=== PATIENT | female | born 1975 | race American Indian/Alaskan Native ===

== ENCOUNTER 2017-04-15 19:06 | Emergency (ER) | payer SELFPAY ==
[2017-04-15 20:05] LABS: Basophils % (Auto) 0.7 % (0.0-1.8); Eosinophils % (Auto) 1.3 % (0.0-4.3); Hematocrit 25.6 % (30.3-42.9); Hemoglobin 7.8 gm/dl (10.1-14.3); Mean Corpuscular HGB Conc 30 % (30-34); Platelet Count 396 K/mm3 (140-440); White Blood Count 8.3 K/mm3 (4.5-11.0)
[2017-04-15 20:08] LABS: Mean Corpuscular Hemoglobin 19 pg (28-32); Mean Corpuscular Volume 63 fl (79-97); Red Cell Distribution Width 23.5 % (13.2-15.2)
[2017-04-15 20:29] LABS: Anion Gap 18 mmol/L; BUN/Creatinine Ratio 17; Blood Urea Nitrogen 10 mg/dL (7-17); Calcium 8.5 mg/dL (8.4-10.2); Carbon Dioxide 26 mmol/L (22-30); Chloride 94.7 mmol/L (98-107); Glucose 337 mg/dL (65-100); Sodium 136 mmol/L (137-145)
[2017-04-15 20:34] LABS: Potassium 2.9 mmol/L (3.6-5.0)
[2017-04-15] MEDS ORDERED: K-DUR PO ONE (21:24)
--- NOTE | 2017-04-15 21:38 | Emergency Department Report ---
HPI - General Chief Complaint: Hyperglycemia Time Seen by Provider: 04/15/17 21:23 - HPI HPI: Room 19 The patient is a 41-year-old female presenting with a chief complaint of STD exposure. The patient states she had a sexual encounter with a partner in January and since then she has had vaginal irritation and occasional vaginal pain. The patient states she also has had yellow vaginal discharge. The patient states she was contacted by the partner and informed that he had an STD. The patient states she was not told which type of STD he was diagnosed with. Patient denies fever, dysuria or abdominal pain Location: Pelvis Duration: Intermittent since January Quality: Pain Severity: Moderate Modifying factors: [see above] Context: [see above] Mode of transportation: Unknown ED Past Medical Hx - Past Medical History Hx Hypertension: Yes Hx Diabetes: Yes - Surgical History Additional Surgical History: Csection - Family History Family history: no significant - Social History Smoking Status: Never Smoker Substance Use Type: Alcohol (occasional) - Medications Home Medications: Home Medications Medication Instructions Recorded Confirmed Last Taken Type Ferrous Sulfate [Feosol 325 MG tab] 325 mg PO TID #90 tablet 09/25/15 03/03/16 Unknown Rx Docusate Sodium [Colace] 100 mg PO BID PRN #60 capsule 04/15/17 Unknown Rx Ferrous Sulfate [Feosol 325 MG tab] 325 mg PO TID #90 tablet 04/15/17 Unknown Rx ED Review of Systems ROS: Stated complaint: PAIN/DISCHARGE Other details as noted in HPI Comment: All other systems reviewed and negative Constitutional: denies: chills, fever Eyes: denies: eye pain, eye discharge, vision change ENT: denies: ear pain, throat pain Respiratory: denies: cough, shortness of breath, wheezing Cardiovascular: denies: chest pain, palpitations Endocrine: no symptoms reported Gastrointestinal: denies: abdominal pain, nausea, diarrhea Genitourinary: discharge. denies: dysuria Musculoskeletal: denies: back pain, joint swelling, arthralgia Skin: denies: rash, lesions Neurological: denies: headache, weakness, paresthesias Psychiatric: denies: anxiety, depression Hematological/Lymphatic: denies: easy bleeding, easy bruising Physical Exam - Physical Exam Vital Signs: Vital Signs 04/15/17 19:25 Temperature 98.6 F Pulse Rate 116 H Respiratory 18 Rate Blood Pressure 165/100 O2 Sat by Pulse 99 Oximetry Physical Exam: GENERAL: The patient is well-developed well-nourished female lying on stretcher not appearing to be in acute distress. [] HEENT: Normocephalic. Atraumatic. Extraocular motions are intact. Patient has moist mucous membranes. NECK: Supple. Trachea midline CHEST/LUNGS: Clear to auscultation. There is no respiratory distress noted. HEART/CARDIOVASCULAR: Regular. There is no tachycardia. There is no gallop rub or murmur. ABDOMEN: Abdomen is soft, nontender. Patient has normal bowel sounds. There is no abdominal distention. SKIN: There is no rash. There is no edema. There is no diaphoresis. NEURO: The patient is awake, alert, and oriented. The patient is cooperative. The patient has normal speech MUSCULOSKELETAL: There is no evidence of acute injury. PELVIC: No visible discharge seen. No cervical lesions ED Course Vital Signs 04/15/17 19:25 Temperature 98.6 F Pulse Rate 116 H Respiratory 18 Rate Blood Pressure 165/100 O2 Sat by Pulse 99 Oximetry ED Medical Decision Making - Lab Data Result diagrams: 04/15/17 19:54 04/15/17 19:54 Laboratory Tests 04/15/17 04/15/17 04/15/17 19:47 19:54 19:54 WBC 8.3 RBC 4.10 Hgb 7.8 L Hct 25.6 L MCV 63 L MCH 19 L MCHC 30 RDW 23.5 H Plt Count 396 Lymph % (Auto) 23.4 Jess[place] % (Auto) 10.1 H Eos % (Auto) 1.3 Baso % (Auto) 0.7 Lymph # 1.9 Jessamine # 0.8 Eos # 0.1 Baso # 0.1 Seg Neutrophils % 64.5 Seg Neutrophils # 5.3 VBG pH Sodium 136 L Potassium 2.9 L* Chloride 94.7 L Carbon Dioxide 26 Anion Gap 18 BUN 10 Creatinine 0.6 L Estimated GFR > 60 BUN/Creatinine Ratio 17 Glucose 337 H POC Glucose 372 H Calcium 8.5 HCG, Qual Urine Color Urine Turbidity Urine pH Urine Protein Urine Glucose (UA) Urine Ketones Urine Blood Urine Nitrite Urine Bilirubin Urine Urobilinogen Ur Leukocyte Esterase Urine WBC (Auto) Urine RBC (Auto) U Epithel Cells (Auto) Urine Bacteria (Auto) 04/15/17 04/15/17 04/15/17 19:54 19:54 21:47 WBC RBC Hgb Hct MCV MCH MCHC RDW Plt Count Lymph % (Auto) Jessamine % (Auto) Eos % (Auto) Baso % (Auto) Lymph # Jessamine # Eos # Baso # Seg Neutrophils % Seg Neutrophils # VBG pH 7.464 H Sodium Potassium Chloride Carbon Dioxide Anion Gap BUN Creatinine Estimated GFR BUN/Creatinine Ratio Glucose POC Glucose 370 H Calcium HCG, Qual Negative Urine Color Urine Turbidity Urine pH Urine Protein Urine Glucose (UA) Urine Ketones Urine Blood Urine Nitrite Urine Bilirubin Urine Urobilinogen Ur Leukocyte Esterase Urine WBC (Auto) Urine RBC (Auto) U Epithel Cells (Auto) Urine Bacteria (Auto) 04/15/17 Unknown WBC RBC Hgb Hct MCV MCH MCHC RDW Plt Count Lymph % (Auto) Jessamine % (Auto) Eos % (Auto) Baso % (Auto) Lymph # Jessamine # Eos # Baso # Seg Neutrophils % Seg Neutrophils # VBG pH Sodium Potassium Chloride Carbon Dioxide Anion Gap BUN Creatinine Estimated GFR BUN/Creatinine Ratio Glucose POC Glucose Calcium HCG, Qual Urine Color Straw Urine Turbidity Clear Urine pH 6.0 Urine Protein <15 mg/dl Urine Glucose (UA) >=500 Urine Ketones Tr Urine Blood Neg Urine Nitrite Neg Urine Bilirubin Neg Urine Urobilinogen < 2.0 Ur Leukocyte Esterase Neg Urine WBC (Auto) < 1.0 Urine RBC (Auto) 3.0 U Epithel Cells (Auto) 2.0 Urine Bacteria (Auto) 1+ Wet prep-no clue cells, no Trichomonas, no yeast - Differential Diagnosis vaginitis, UTI, bacterial vaginosis, STD exposure Critical care attestation.: If time is entered above; I have spent that time in minutes in the direct care of this critically ill patient, excluding procedure time. ED Disposition Clinical Impression: Vaginal discharge, Hypokalemia, STD exposure, Anemia Disposition: DC-01 TO HOME OR SELFCARE Is pt being admited?: No Does the pt Need Aspirin: No Condition: Stable Instructions: Sexually Transmitted Diseases (ED), Safe Sex (ED) Additional Instructions: Return to the emergency department immediately should you develop worsening symptoms, fever, inability to tolerate food or liquid or any other concerns. Prescriptions: Docusate Sodium [Colace] 100 mg PO BID PRN #60 capsule PRN Reason: Constipation Ferrous Sulfate [Feosol 325 MG tab] 325 mg PO TID #90 tablet Referrals: PRIMARY CARE, [Primary Care Provider] - 3-5 Days [facility] [Outside] - [facility] (You should follow-up at the health department for further screening for sexually transmitted diseases) Time of Disposition: 23:28
[2017-04-15] MEDS ORDERED: NACL 0.9% 1000 ML 1,000 ML IV ONE (21:48)
[2017-04-15 21:54] LABS: Bacteria,Urine 1+ /HPF (Negative); Bilirubin,Urine NEG (Negative); Blood,Urine NEG (Negative); Ketones,Urine TR mg/dL (Negative); Leukocyte Esterase,Urine NEG (Negative); Nitrite,Urine NEG (Negative); Protein,Urine <15 mg/dL mg/dL (Negative); Urobilinogen,Urine < 2.0 mg/dL (<2.0); WBC,Urine < 1.0 /HPF (0.0-6.0)
[2017-04-15] MEDS ORDERED: ZITHROMAX PO ONE (23:16)
[2017-04-15] MEDS ORDERED: ROCEPHIN IM ONE (23:16)
[2017-04-15] MEDS ORDERED: XYLOCAINE 1% MPF 5 mL INFILTRATI ONE (23:16)
[2017-04-16 00:11] VITALS: BP 121/77
== END 2017-04-16 00:08 | disposition home or self-care (01) ==
LOC: ED 19:06
DX: N89.8 Other specified noninflammatory disorders of vagina (principal); E87.6 Hypokalemia; D64.9 Anemia, unspecified; Z20.2 Contact with and (suspected) exposure to infections with a predominantly sexual mode of transmission; I10 Essential (primary) hypertension; E11.9 Type 2 diabetes mellitus without complications; Z98.890 Other specified postprocedural states
CPT/HCPCS: 36415; 80048; 81001; 82805; 82962; 84703; 85025; 87210; 87591; 96361; 96372; 96374; 99285; J0696; J7030; J1815

== ENCOUNTER 2018-01-26 09:39 | Emergency (ER) | payer OTHER ==
[2018-01-26 09:52] VITALS: BP 149/99
--- NOTE | 2018-01-26 10:18 | Emergency Department Report ---
ED ENT HPI - General Chief complaint: Dental/Oral Stated complaint: EAR ACHE/HIGH SUGAR Time Seen by Provider: 01/26/18 10:15 Source: patient, family Mode of arrival: Ambulatory Limitations: No Limitations - History of Present Illness Initial comments: Patient reported that she has left ear pain with toothache to her left and right lower back tooth 2 weeks. She said her insurance just kicked and so she has not a chance to get a dentist or primary care doctor. She says she has been taking aspirin a lot and she took some today. This is for a toothache that is 7 out of 10 and her a left ear ache is 7 out of 10 and aching. Worse with talking and then yawning. She also said she has a yeast infection which she had in the past and she would like to have some Diflucan on. No alleviating factors. Denies any fever or chills. Denies any nasal congestion or runny nose. Denies any cough or shortness of breath. Denies any chest pain. Denies any sore throat or drooling. MD complaint: tooth pain, ear pain Onset/Timin -: week(s) Location: L ear, tooth # 1 - 17 18,30, 31 and 32 with dental caries and partial fracture. No palpable exposure 2 - 30, 31 and 32 Severity: severe Severity scale (0 -10): 7 Quality: aching Consistency: constant Improves with: none Worsens with: eating Context- Dental: history of dental caries, poor dental care, other (fractured tooth) Context- Ear: other (unknown) Associated Symptoms: toothache. denies: fever, cough, gum swelling, pain with swallowing, sore throat, tinnitus, hearing loss, discharge from ear, rhinorrhea - Related Data Previous Rx's Medication Instructions Recorded Last Taken Type Ferrous Sulfate [Feosol 325 MG tab] 325 mg PO TID #90 tablet 09/25/15 Unknown Rx Docusate Sodium [Colace] 100 mg PO BID PRN #60 capsule 04/15/17 Unknown Rx Ferrous Sulfate [Feosol 325 MG tab] 325 mg PO TID #90 tablet 04/15/17 Unknown Rx Acetaminophen/Codeine [Tylenol 1 tab PO Q6H PRN #14 tab 01/26/18 Unknown Rx /Codeine # 3 tab] Amoxicillin [Amoxicillin TAB] 875 mg PO BID 10 Days #20 tablet 01/26/18 Unknown Rx Fluconazole [Diflucan TAB] 200 mg PO QDAY 2 Days #2 tablet 01/26/18 Unknown Rx Allergies Allergy/AdvReac Type Severity Reaction Status Date / Time No Known Allergies Allergy Verified 01/26/18 09:47 ED Dental HPI - General Chief complaint: Dental/Oral Stated complaint: EAR ACHE/HIGH SUGAR Source: patient Mode of arrival: Ambulatory Limitations: No Limitations - Related Data Previous Rx's Medication Instructions Recorded Last Taken Type Ferrous Sulfate [Feosol 325 MG tab] 325 mg PO TID #90 tablet 09/25/15 Unknown Rx Docusate Sodium [Colace] 100 mg PO BID PRN #60 capsule 04/15/17 Unknown Rx Ferrous Sulfate [Feosol 325 MG tab] 325 mg PO TID #90 tablet 04/15/17 Unknown Rx Acetaminophen/Codeine [Tylenol 1 tab PO Q6H PRN #14 tab 01/26/18 Unknown Rx /Codeine # 3 tab] Amoxicillin [Amoxicillin TAB] 875 mg PO BID 10 Days #20 tablet 01/26/18 Unknown Rx Fluconazole [Diflucan TAB] 200 mg PO QDAY 2 Days #2 tablet 01/26/18 Unknown Rx Allergies Allergy/AdvReac Type Severity Reaction Status Date / Time No Known Allergies Allergy Verified 01/26/18 09:47 ED Review of Systems ROS: Stated complaint: EAR ACHE/HIGH SUGAR Other details as noted in HPI Constitutional: denies: chills, fever Eyes: vision change. denies: eye pain, eye discharge ENT: ear pain, dental pain. denies: throat pain, hearing loss, epistaxis, congestion Respiratory: denies: cough, shortness of breath, SOB with exertion, SOB at rest , stridor, wheezing Cardiovascular: denies: chest pain, palpitations, edema, syncope Gastrointestinal: diarrhea. denies: nausea, vomiting Musculoskeletal: denies: back pain, joint swelling, arthralgia Skin: denies: rash, lesions Neurological: denies: headache ED Past Medical Hx - Past Medical History Previous Medical History?: Yes Hx Hypertension: Yes Hx Diabetes: Yes - Surgical History Past Surgical History?: Yes Additional Surgical History: Csection - Family History Family history: hypertension - Social History Smoking Status: Never Smoker Substance Use Type: None - Medications Home Medications: Home Medications Medication Instructions Recorded Confirmed Last Taken Type Ferrous Sulfate [Feosol 325 MG tab] 325 mg PO TID #90 tablet 09/25/15 03/03/16 Unknown Rx Docusate Sodium [Colace] 100 mg PO BID PRN #60 capsule 04/15/17 Unknown Rx Ferrous Sulfate [Feosol 325 MG tab] 325 mg PO TID #90 tablet 04/15/17 Unknown Rx Acetaminophen/Codeine [Tylenol 1 tab PO Q6H PRN #14 tab 01/26/18 Unknown Rx /Codeine # 3 tab] Amoxicillin [Amoxicillin TAB] 875 mg PO BID 10 Days #20 tablet 01/26/18 Unknown Rx Fluconazole [Diflucan TAB] 200 mg PO QDAY 2 Days #2 tablet 01/26/18 Unknown Rx ED Physical Exam - General Limitations: No Limitations General appearance: alert, in no apparent distress - Head Head exam: Present: atraumatic, normocephalic, normal inspection - Eye Eye exam: Present: normal appearance, PERRL, EOMI Pupils: Present: normal accommodation - ENT ENT exam: Present: normal orophraynx, mucous membranes moist, normal external ear exam (bilateral EAC normal exam), other (frontal and maxillary sinus nontender to palpate). Absent: normal exam, TM's normal bilaterally (bilateral TM congested without erythema.) - Expanded ENT Exam Expanded Ear exam: Present: normal external inspection Mouth exam: Present: normal external inspection, tongue normal Teeth exam: Present: fractured tooth # (18 and 32), dental tenderness # (tooth # 17, 18, 30, 31 and 32) 1 - Fractured (partial fracture without any palpable exposure), Dental Tenderness (30, 31 and 32 with dental tenderness) 2 - Fractured (partial fracture), Dental Tenderness (17 and 18 with dental tenderness) Throat exam: Positive: normal inspection - Neck Neck exam: Present: normal inspection, full ROM. Absent: tenderness, lymphadenopathy - Respiratory Respiratory exam: Present: normal lung sounds bilaterally. Absent: respiratory distress, chest wall tenderness - Cardiovascular Cardiovascular Exam: Present: normal rhythm, tachycardia, normal heart sounds. Absent: systolic murmur, diastolic murmur - Extremities Exam Extremities exam: Present: normal inspection, full ROM, normal capillary refill , other (No cce. + 2 pulses in all extremities, no neurovascular compromise). Absent: tenderness, pedal edema, joint swelling, calf tenderness - Neurological Exam Neurological exam: Present: alert, oriented X3, normal gait - Psychiatric Psychiatric exam: Present: normal affect, normal mood - Skin Skin exam: Present: warm, dry, intact, normal color. Absent: rash ED Course Vital Signs 01/26/18 01/26/18 09:48 11:18 Temperature 98.2 F Pulse Rate 112 H 100 H Respiratory 18 Rate Blood Pressure 149/99 O2 Sat by Pulse 99 Oximetry - Reevaluation(s) Reevaluation #1: 01/26/18 11:23 Patient received Motrin 800 mg emergency room for toothache. ED Medical Decision Making - Lab Data Lab Results 01/26/18 Range/Units 09:50 POC Glucose 285 H (70-105) - Medical Decision Making This is a 42-year-old female here complaining of a toothache and left ear pain 2 weeks. She says she did not have any insurance and her insurance is taken and she is to find a dentist. She denies any fever or chills. Denies any respiratory symptoms, nasal congestion or drainage, sore throat. She is also requesting medication for yeast infection because she says she has a yeast infection and she looks absolutely upon. She was examining and oral exam is normal except she has dental caries upper and lower teeth with partial filling to tooth #30 and 31 and tooth #17 and 18. She has fractured tooth to #32 without any palpable exposure and #17 partially fractured without any palpable exposure with dental tenderness to tooth #17 and 32. Mild gingivitis noted. Bilateral TM congested and erythema and EACs normal. Her lungs are clear and nasal mucosa normal exam. Patient is no concern for STD she says that she knows she has eased infection out like to have Diflucan because she is at similar symptoms in the past and they gave her Diflucan for 2 days which covered her yeast infection. I discuss oral findings the patient, diagnosis and treatment plan and she voiced understanding. She was given Motrin which relieved her pain. Toothache, dental caries, gingivitis, close fracture teeth to #17 and 32.- Patient referred to [facility] for treatment of underlying dental problems. She given Motrin 800 mg. Emergency room Which Helped Her Pain Better and She Will Be Discharged Home on Tylenol 3 and Amoxicillin. Yeast vaginitis-Diflucan on 2 days. She will be referred to [facility] for further follow-up. Hyperglycemia and Diabetic-diet controlled. I discussed the patient that her blood sugar was at 285 and she will need to follow up with [facility] for primary care physician to manage her chronic diabetes and to follow diabetic diet. I also told her to keep a lot of her blood sugar and take to primary care visit for evaluation. Patient is stable, vital signs stable and she is afebrile. Pain is better. I discussed with her that she is to follow up with [facility] in 3-5 days and also [facility] in 3-5 days and she was not distended. Discharge home with prescription for Tylenol 3, Diflucan and amoxicillin. - Differential Diagnosis MEAT COOLER, exudative pharyngitis, tonsillitis, tooth fx, gingivitis, dental aubrie Critical care attestation.: If time is entered above; I have spent that time in minutes in the direct care of this critically ill patient, excluding procedure time. ED Disposition Clinical Impression: Toothache, Dental caries, Gingivitis, Yeast infection of the vagina Fracture, tooth Qualifiers: Encounter type: sequela Fracture type: closed Qualified Code(s): S02.5XXS - Fracture of tooth (traumatic), sequela Hyperglycemia due to type 2 diabetes mellitus Qualifiers: Diabetes mellitus meterman insulin use: without senior living use Qualified Code(s ): E11.65 - Type 2 diabetes mellitus with hyperglycemia Disposition: DC-01 TO HOME OR SELFCARE Is pt being admited?: No Does the pt Need Aspirin: No Condition: Stable Instructions: Dental Caries (ED), Toothache (ED), Gingivitis (ED), Vaginitis ( ED), Diabetes Mellitus Type 2 in Adults (ED), Meal Planning with Diabetes Exchanges (DC) Additional Instructions: follow-up with please follow-up with [facility] and [facility] as instructed. [facility] to manage your chronic diabetes. Take amoxicillin antibiotic and also take Tylenol 3 for pain but please do not drive or operate heavy machinery while taking this medication Increasing fluid intake Flu, and he can take 1 today and then one after he finished antibiotic. Prescriptions: Fluconazole [Diflucan TAB] 200 mg PO QDAY 2 Days #2 tablet Referrals: AVELINA SANDOVAL MD [Primary Care Provider] - 3-5 Days [facility] [Outside] - 3-5 Days [facility] [Outside] - 3-5 Days [facility] [Provider Group] - 3-5 Days Forms: Work/School Release Form(ED)
[2018-01-26] MEDS ORDERED: MOTRIN PO ONE (10:25)
== END 2018-01-26 12:01 | disposition home or self-care (01) ==
LOC: ED 09:39
DX: S02.5XXS Fracture of tooth (traumatic), sequela (principal); K02.9 Dental caries, unspecified; K05.10 Chronic gingivitis, plaque induced; B37.3 Candidiasis of vulva and vagina; E11.65 Type 2 diabetes mellitus with hyperglycemia; I10 Essential (primary) hypertension
CPT/HCPCS: 82962; 99283

== ENCOUNTER 2018-02-19 06:46 | Emergency (ER) | payer BC, OTHER ==
[2018-02-19 08:06] LABS: Bilirubin,Urine Negative (Negative); Blood,Urine Negative (Negative); Color,Urine Yellow (Yellow)
[2018-02-19 08:07] LABS: Protein,Urine <15 mg/dL mg/dL (Negative); Urobilinogen,Urine < 2.0 mg/dL (<2.0)
[2018-02-19 08:08] LABS: Mucus,Urine FEW /HPF
[2018-02-19 08:13] LABS: Hematocrit 25.2 % (30.3-42.9); Hemoglobin 7.7 gm/dl (10.1-14.3); Mean Corpuscular HGB Conc 31 % (30-34); Platelet Count 304 K/mm3 (140-440); Red Blood Count 3.94 M/mm3 (3.65-5.03)
[2018-02-19 08:14] LABS: Mean Corpuscular Hemoglobin 20 pg (28-32); Mean Corpuscular Volume 64 fl (79-97); Red Cell Distribution Width 26.4 % (13.2-15.2)
[2018-02-19 08:25] LABS: BUN/Creatinine Ratio 12; Blood Urea Nitrogen 6 mg/dL (7-17); Calcium 8.8 mg/dL (8.4-10.2); Hemolysis Index 0
[2018-02-19 09:31] LABS: Anisocytosis 1+; Band Neutrophils # (Manual) 0.2 K/mm3; Basophils % (Manual) 0 % (0.0-1.8); Eosinophils % (Manual) 0 % (0.0-4.3); Hypochromasia 3+; Ovalocytes 1+; Total Cells Counted 100
[2018-02-19 09:32] LABS: Giant Platelets Few; Large Platelets Few; Platelet Estimate Consistent w Auto; Tear Drop Cells Few
[2018-02-19] MEDS ORDERED: HumuLIN R IV ONE (09:43)
[2018-02-19] MEDS ORDERED: K-DUR PO ONE (09:43)
[2018-02-19] MEDS ORDERED: NACL 0.9% 1000 ML 1,000 ML IV ONE (09:43)
--- NOTE | 2018-02-19 09:44 | Emergency Department Report ---
ED General Adult HPI - General Chief complaint: Hyperglycemia Stated complaint: TOOTHACHE, LT EARACHE Time Seen by Provider: 02/19/18 09:41 Source: patient Mode of arrival: Ambulatory Limitations: No Limitations - History of Present Illness Severity scale (0 -10): 0 - Related Data Previous Rx's Medication Instructions Recorded Last Taken Type Docusate Sodium [Colace] 100 mg PO BID PRN #60 capsule 04/15/17 Unknown Rx Ferrous Sulfate [Feosol 325 MG tab] 325 mg PO TID #90 tablet 04/15/17 Unknown Rx Acetaminophen/Codeine [Tylenol 1 tab PO Q6H PRN #14 tab 01/26/18 Unknown Rx /Codeine # 3 tab] Amoxicillin [Amoxicillin TAB] 875 mg PO BID 10 Days #20 tablet 01/26/18 Unknown Rx Ferrous Sulfate [Feosol 325 MG tab] 325 mg PO TID #90 tablet 01/26/18 Unknown Rx Fluconazole [Diflucan TAB] 200 mg PO QDAY 2 Days #2 tablet 01/26/18 Unknown Rx Allergies Allergy/AdvReac Type Severity Reaction Status Date / Time No Known Allergies Allergy Verified 01/26/18 09:47 ED Review of Systems ROS: Stated complaint: TOOTHACHE, LT EARACHE Other details as noted in HPI ED Past Medical Hx - Past Medical History Previous Medical History?: Yes Hx Hypertension: Yes Hx Diabetes: Yes - Surgical History Past Surgical History?: Yes Additional Surgical History: Csection - Social History Smoking Status: Never Smoker Substance Use Type: None - Medications Home Medications: Home Medications Medication Instructions Recorded Confirmed Last Taken Type Docusate Sodium [Colace] 100 mg PO BID PRN #60 capsule 04/15/17 Unknown Rx Ferrous Sulfate [Feosol 325 MG tab] 325 mg PO TID #90 tablet 04/15/17 Unknown Rx Acetaminophen/Codeine [Tylenol 1 tab PO Q6H PRN #14 tab 01/26/18 Unknown Rx /Codeine # 3 tab] Amoxicillin [Amoxicillin TAB] 875 mg PO BID 10 Days #20 tablet 01/26/18 Unknown Rx Ferrous Sulfate [Feosol 325 MG tab] 325 mg PO TID #90 tablet 01/26/18 Unknown Rx Fluconazole [Diflucan TAB] 200 mg PO QDAY 2 Days #2 tablet 01/26/18 Unknown Rx ED Physical Exam - General Limitations: No Limitations ED Course Vital Signs 02/19/18 02/19/18 07:16 09:16 Temperature 98.0 F 98.1 F Pulse Rate 106 H 78 Respiratory 18 18 Rate Blood Pressure 136/77 Blood Pressure 109/72 [Right] O2 Sat by Pulse 99 100 Oximetry ED Medical Decision Making - Lab Data Result diagrams: 02/19/18 07:53 02/19/18 07:53 Critical care attestation.: If time is entered above; I have spent that time in minutes in the direct care of this critically ill patient, excluding procedure time. ED Disposition Condition: Stable Referrals: PRIMARY CARE, [Primary Care Provider] - 3-5 Days
[2018-02-19] MEDS ORDERED: MAG-OX PO ONE (10:30)
[2018-02-19] MEDS ORDERED: MAGNESIUM SULFATE 2GM/50ML 2 GM/50 ML BAG IV NR (10:30)
[2018-02-19] MEDS ORDERED: TYLENOL #3 PO ONE (10:56)
[2018-02-19] MEDS: KCL 10MEQ/100ML 10 MEQ/100 ML BAG IV SCH ×2 (11:10→14:19)
[2018-02-19] MEDS ORDERED: VEETIDS PO ONE (12:00)
[2018-02-19 13:04] LABS: BUN/Creatinine Ratio 17; Blood Urea Nitrogen 5 mg/dL (7-17); Calcium 8.3 mg/dL (8.4-10.2); Hemolysis Index 0
[2018-02-19] MEDS ORDERED: NACL 0.9% 250ML 0 ML ONE (13:18)
--- NOTE | 2018-02-19 13:27 | Emergency Department Report ---
HPI - General Chief Complaint: Hyperglycemia Time Seen by Provider: 02/19/18 09:41 - HPI HPI: The patient is a 42-year-old female with a history of diabetes type 2, noncompliant with diabetes meds, who presents for evaluation of recurrence of left tooth pain. She reports that she has a space left lower teeth pain for the past one to 2 days, constant, severe, exacerbated with attempts at shoe, radiating to the left ear. She denies trauma to the mouth or left ear, fever, chills, night sweats, facial swelling, pain behind the ear, headache, Drainage or discharge from ear, mouth, or nose, hair vision change, ofacial drooping, paresthesia, or other focal neurological deficit ED Past Medical Hx - Past Medical History Previous Medical History?: Yes Hx Hypertension: Yes Hx Diabetes: Yes - Surgical History Past Surgical History?: Yes Additional Surgical History: Csection - Social History Smoking Status: Never Smoker Substance Use Type: None - Medications Home Medications: Home Medications Medication Instructions Recorded Confirmed Last Taken Type Docusate Sodium [Colace] 100 mg PO BID PRN #60 capsule 04/15/17 Unknown Rx Ferrous Sulfate [Feosol 325 MG tab] 325 mg PO TID #90 tablet 04/15/17 Unknown Rx Acetaminophen/Codeine [Tylenol 1 tab PO Q6H PRN #14 tab 01/26/18 Unknown Rx /Codeine # 3 tab] Amoxicillin [Amoxicillin TAB] 875 mg PO BID 10 Days #20 tablet 01/26/18 Unknown Rx Ferrous Sulfate [Feosol 325 MG tab] 325 mg PO TID #90 tablet 01/26/18 Unknown Rx Fluconazole [Diflucan TAB] 200 mg PO QDAY 2 Days #2 tablet 01/26/18 Unknown Rx Acetaminophen/Codeine [Tylenol #3] 1 tab PO Q6H PRN #14 tab 02/19/18 Unknown Rx Ibuprofen [Motrin] 800 mg PO Q8HR PRN #15 tablet 02/19/18 Unknown Rx Nystas/Diphen/Xyl Visc/Mylanta 30 ml MM Q4H #1 bottle 02/19/18 Unknown Rx [Magic Mouthwash] Penicillin Vk [Veetids TAB] 250 mg PO QID #20 tablet 02/19/18 Unknown Rx Potassium Chloride [K-Dur] 20 meq PO QDAY #10 tablet 02/19/18 Unknown Rx ED Review of Systems ROS: Stated complaint: TOOTHACHE, LT EARACHE Other details as noted in HPI Constitutional: denies: fever HEENT: reports tooth pain and ear pain denies: throat or neck pain Respiratory: denies: cough, shortness of breath Cardiovascular: denies: chest pain Endocrine: denies unexplained weight loss or gain Gastrointestinal: denies: abdominal pain, nausea Genitourinary: denies: dysuria Musculoskeletal: denies: leg swelling Skin: denies: rash Neurological: denies: headache Hematological/Lymphatic: denies: easy bleeding or easy bruising Psych: denies sadness or hopelessness Physical Exam - Physical Exam Vital Signs: Vital Signs 02/19/18 02/19/18 02/19/18 07:16 09:16 11:13 Temperature 98.0 F 98.1 F Pulse Rate 106 H 78 Respiratory 18 18 20 Rate Blood Pressure 136/77 Blood Pressure 109/72 [Right] O2 Sat by Pulse 99 100 Oximetry Physical Exam: General: well-nourished, well-developed, no acute distress Head: Normocephalic, atraumatic Eyes: normal sclera ENT: Mucous membranes are pale and dry, dental caries extending into the pulp presents to the left lower second and third molars, mild adjacent erythema of the gingiva present, no fluctuance or abscess at this time Neck: No neck stiffness, no cervical adenopathy Respiratory: Breath sounds equal bilaterally, no wheezing, rales, or rhonchi Cardio: S1 and S2 present, no murmurs, rubs, gallops, capillary refill is delayed Abdomen: Normoactive bowel sounds, soft abdomen, no tenderness, no rigidity, no guarding or rebound tenderness Musc: No pitting edema Skin: No rash Neuro: no facial drooping, normal speech Psych: Normal affect ED Course Vital Signs 02/19/18 02/19/18 02/19/18 07:16 09:16 11:13 Temperature 98.0 F 98.1 F Pulse Rate 106 H 78 Respiratory 18 18 20 Rate Blood Pressure 136/77 Blood Pressure 109/72 [Right] O2 Sat by Pulse 99 100 Oximetry ED Medical Decision Making - Lab Data Result diagrams: 02/19/18 07:53 02/19/18 12:28 - Medical Decision Making The patient was seen and examined by myself. The patient is placed on a ekg monitor and continuous pulse ox. On initial evaluation, the patient was found to be in no distress. Evaluation orders were placed. Labs reveal low potassium level of 2.7 and elevated glucose of 400. The patient is given 1 L normal saline fluid bolus and IV insulin for treatment of hyperglycemia and dehydration. The patient is given by mouth and IV potassium. The patient is given penicillin vk and a tablet of pain medicine for her tooth pain. A repeat basic metabolic panel was performed and the patient is found to remain with low potassium level of 2.6. The patient is informed of need to continue potassium replacement, and she requests to sign out AMA. The patient is informed of risks of refusal of further care/stabilization and signing out AGAINST MEDICAL ADVICE , including potential risk of increased morbidity and/or , versus benefits of further treatment and stablization. The patient is informed of treatment options and outside facility options for futher treatment and definitive stablization. The patient is able to verbalize their treatment options and benefits of treatments, versus risks of refusal of further care. The patient is competent to make medical decisions and signed out AGAINST MEDICAL ADVICE. Critical care attestation.: If time is entered above; I have spent that time in minutes in the direct care of this critically ill patient, excluding procedure time. ED Disposition Clinical Impression: Dehydration, Acute hyperglycemia, Dental caries, Toothache Disposition: DC- TO HOME OR SELFCARE Is pt being admited?: No Does the pt Need Aspirin: No Condition: Serious Instructions: Dental Caries (ED), Diabetes Mellitus Type 2 in Adults (ED) Referrals: [facility] [Outside] - 3-5 Days [facility] [Outside] - 3-5 Days [facility] [Outside] - 3-5 Days Time of Disposition: 13:33
[2018-02-19 14:15] VITALS: BP 121/73
== END 2018-02-19 14:20 | disposition home or self-care (01) ==
LOC: ED 06:46
DX: E11.65 Type 2 diabetes mellitus with hyperglycemia (principal); E86.0 Dehydration; K02.9 Dental caries, unspecified; E11.9 Type 2 diabetes mellitus without complications; Z79.899 Other long term (current) drug therapy
CPT/HCPCS: 36415; 80048; 81001; 82805; 82962; 83735; 84703; 85007; 85025; 96361; 96374; 99284; J3475; J3480; J7030; J1815; J7050